=== PATIENT | male | born 1955 | race Caucasian/White ===

== ENCOUNTER 2021-04-06 02:23 | Inpatient (IN) | payer OTHER ==
[~2021-04-06] VITALS: Ht 188 cm; Wt 96.0 kg
[2021-04-06 03:02] LABS: HEMOGLOBIN 17.1 gm/dl (14.0-17.5); RED BLOOD COUNT 5.48 M/UL (4.20-5.50); WHITE BLOOD COUNT 1.6 K/UL (4.5-11.0)
[2021-04-06] MEDS ORDERED: [UNRECOGNIZED DRUG - OTHER] PO (09:58)
[2021-04-06] MEDS ORDERED: STIOLTO RESPIMAT4 GM INH (10:00)
[2021-04-06] MEDS ORDERED: IPRATROPIUM BRO30 ML (10:03)
[2021-04-06] MEDS ORDERED: PROAIR HFA8.5 GM INH (10:04)
[2021-04-06] MEDS ORDERED: TYLENOL325 M1 PO (10:04)
[2021-04-07 02:48] LABS: HEMOGLOBIN 14.8 gm/dl (14.0-17.5); RED BLOOD COUNT 4.85 M/UL (4.20-5.50); WHITE BLOOD COUNT 4.3 K/UL (4.5-11.0)
[2021-04-07 10:10] LABS: HEMOGLOBIN 15.1 gm/dl (14.0-17.5); RED BLOOD COUNT 4.91 M/UL (4.20-5.50)
[2021-04-07 10:32] LABS: BUN/CREATININE RATIO 58 (0-10)
[2021-04-07 10:38] LABS: WHITE BLOOD COUNT 8.7 K/UL (4.5-11.0)
[2021-04-07 15:46] LABS: BORDETELLA PARAPERTUSSIS Not Detected (Not Detectd); BORDETELLA PERTUSSIS Not Detected (Not Detectd); CHLAMYDIA PNEUMONIAE Not Detected (Not Detectd); CORONAVIRUS HKU1 Not Detected (Not Detectd); CORONAVIRUS NL63 Not Detected (Not Detectd); CORONAVIRUS OC43 Not Detected (Not Detectd); CORONOAVIRUS 229E Not Detected (Not Detectd); HUMAN METAPNEUMOVIRUS Not Detected (Not Detectd); HUMAN RHINOVIRUS/ENTEROVIRUS Not Detected (Not Detectd); INFLUENZA A Not Detected (Not Detectd); INFLUENZA B Not Detected (Not Detectd); MYCOPLASMA PNEUMONIAE Not Detected (Not Detectd); PARAINFLUENZA VIRUS 1 Not Detected (Not Detectd); PARAINFLUENZA VIRUS 2 Not Detected (Not Detectd); PARAINFLUENZA VIRUS 3 Not Detected (Not Detectd); PARAINFLUENZA VIRUS 4 Not Detected (Not Detectd); RESPIRATORY SYNCYTIAL VIRUS Not Detected (Not Detectd)
[2021-04-07 17:19] LABS: SARS-CoV-2 NOT DETECTED (Not Detectd)
[2021-04-08 05:55] LABS: BUN/CREATININE RATIO 63 (0-10)
[2021-04-09 04:24] LABS: HEMOGLOBIN 13.7 gm/dl (14.0-17.5); RED BLOOD COUNT 4.57 M/UL (4.20-5.50)
[2021-04-09 04:44] LABS: BUN/CREATININE RATIO 57 (0-10)
[2021-04-10 05:39] LABS: BUN/CREATININE RATIO 59 (0-10)
[2021-04-10 08:45] LABS: HEMOGLOBIN 13.4 gm/dl (14.0-17.5); RED BLOOD COUNT 4.44 M/UL (4.20-5.50); WHITE BLOOD COUNT 24.1 K/UL (4.5-11.0)
[2021-04-10 16:15] LABS: ORGANISM ID Not indicated. (.); SPECIMEN SOURCE Urine (.)
[2021-04-11 05:17] LABS: HEMOGLOBIN 13.9 gm/dl (14.0-17.5); RED BLOOD COUNT 4.72 M/UL (4.20-5.50); WHITE BLOOD COUNT 26.7 K/UL (4.5-11.0)
[2021-04-11 05:43] LABS: BUN/CREATININE RATIO 57 (0-10)
[2021-04-11 16:11] LABS: ASPERGILLUS FLAVUS Negative (Neg:<1:1); ASPERGILLUS FUMIGATUS Negative (Neg:<1:1); ASPERGILLUS NIGER Negative (Neg:<1:1)
[2021-04-12 05:42] LABS: RED BLOOD COUNT 4.64 M/UL (4.20-5.50)
[2021-04-12 05:56] LABS: WHITE BLOOD COUNT 19.6 K/UL (4.5-11.0)
[2021-04-12 06:15] LABS: BUN/CREATININE RATIO 37 (0-10)
[2021-04-13 09:41] LABS: HEMOGLOBIN 13.6 gm/dl (14.0-17.5); RED BLOOD COUNT 4.51 M/UL (4.20-5.50); WHITE BLOOD COUNT 17.2 K/UL (4.5-11.0)
[2021-04-13 10:06] LABS: BUN/CREATININE RATIO 40 (0-10)
[2021-04-14 02:49] LABS: HEMOGLOBIN 13.4 gm/dl (14.0-17.5); RED BLOOD COUNT 4.48 M/UL (4.20-5.50); WHITE BLOOD COUNT 16.4 K/UL (4.5-11.0)
[2021-04-14 03:24] LABS: BUN/CREATININE RATIO 41 (0-10)
[2021-04-14] MEDS ORDERED: ASPIRIN EC81 MG PO (11:40)
[2021-04-14] MEDS ORDERED: PREDNISONE20 MG PO (11:40)
[2021-04-14] MEDS ORDERED: THERAGRAN M TAB1 EA PO (11:40)
[2021-04-14] MEDS ORDERED: LOPRESSOR 50 MG50 MG PO (11:40)
[2021-04-14] MEDS ORDERED: LEVOFLOXACIN500 MG PO (11:40)
[2021-04-17 16:14] LABS: STREPTOCOCCUS PNEUMONIAE AG Positive (Negative)
== END 2021-04-14 12:56 | disposition home or self-care (01) | DRG 871 ==
LOC: ER1 02:23 → PROG CARE 06:09 → CDU 06:09 → PROG CARE 20:46 → CCU 04-07 13:20 → PROG CARE 04-13 14:20
PROVIDERS: Family Medicine; Internal Medicine Infectious Disease; Internal Medicine Pulmonary Disease; ADMIT Internal Medicine
PROC: 5A0945A Assistance with Respiratory Ventilation, 24-96 Consecutive Hours, High Flow/Velocity Cannula (ICD-10-PCS; 2021-04-06)
PROC: 3E04329 Introduction of Other Anti-infective into Central Vein, Percutaneous Approach (ICD-10-PCS; 2021-04-06)
PROC: 3E033XZ Introduction of Vasopressor into Peripheral Vein, Percutaneous Approach (ICD-10-PCS; principal; 2021-04-07)
PROC: 5A09457 Assistance with Respiratory Ventilation, 24-96 Consecutive Hours, Continuous Positive Airway Pressure (ICD-10-PCS; 2021-04-07)
PROC: 5A0955A Assistance with Respiratory Ventilation, Greater than 96 Consecutive Hours, High Flow/Velocity Cannula (ICD-10-PCS; 2021-04-08)
DX: A40.3 Sepsis due to Streptococcus pneumoniae (principal); R65.21 Severe sepsis with septic shock; J18.9 Pneumonia, unspecified organism; J96.01 Acute respiratory failure with hypoxia; G93.41 Metabolic encephalopathy; J13 Pneumonia due to Streptococcus pneumoniae; J44.0 Chronic obstructive pulmonary disease with (acute) lower respiratory infection; N17.9 Acute kidney failure, unspecified; J44.1 Chronic obstructive pulmonary disease with (acute) exacerbation; I48.92 Unspecified atrial flutter; R59.1 Generalized enlarged lymph nodes; I48.0 Paroxysmal atrial fibrillation; F12.10 Cannabis abuse, uncomplicated; F17.210 Nicotine dependence, cigarettes, uncomplicated; Z88.0 Allergy status to penicillin; Z20.822 Contact with and (suspected) exposure to COVID-19; Z71.6 Tobacco abuse counseling; Z79.52 Long term (current) use of systemic steroids; Z79.82 Long term (current) use of aspirin; Z79.899 Other long term (current) drug therapy
CPT/HCPCS: ECHO; 0240U; 36415; 36600; 71045; 71250; 80048; 80053; 80202; 81001; 82550; 82553; 82728; 82803; 83605; 83615; 83735; 83880; 84100; 84443; 84484; 85007; 85025; 85027; 85379; 85384; 85610; 86140; 86606; 86612; 87040; 87070; 87081; 87205; 87278; 87633; 87899; 93005; 93306; 94640; 94660; 94664; 94760; 96365; 96366; 96367; 96368; 96375; 97116; 97116-GP-CQ; 97161; 99285; C9113; J0360; J0692; J1335; J1650; J1720; J2185; J2920; J2930; J3370; J7030; J7070